=== PATIENT | female | born 1995 | race Caucasian/White ===

== ENCOUNTER 2020-07-29 22:18 | Emergency (ER) | payer OTHER ==
[2020-07-29 22:29] VITALS: O2SAT 98
[2020-07-29 23:32] LABS: Absolute Neutrophil Ct (ANC) 4.17 (1.4-6.9); BASOPHIL % 0.4 % (0.0-0.4); Basophil (Absolute #) 0.03 (0-0.4); Eosinophil % 2.9 % (0.00-5.0); Eosinophil (Absolute #) 0.24 (0-0.5); Hematocrit 35.9 % (35-47); Hemoglobin 11.9 gm/dl (12.0-16.0); Lymphocyte (Absolute #) 3.11 (1.0-4.6); Lymphocytes % 37.5 % (24.0-44.0); Mean Cell Volume 93.7 fl (78-100); Mean Corpuscular Hemoglobin 31.1 pg (26-32); Mean Corpuscular Hgb Concent. 33.1 g/dl (32-36); Mean Platelet Volume 10.2 fl (7.5-11.0); Monocyte (Absolute #) 0.74 (0.0-1.3); Monocytes % 8.9 % (0.0-12.0); Neutrophil % 50.3 % (36.0-66.0); Platelet Count 235 K/mm3 (150-450); Red Blood Count 3.83 M/mm3 (4.1-5.4); White Blood Count 8.3 K/mm3 (4.0-10.5)
[2020-07-29 23:33] LABS: ALBUMIN 4.8 g/dL (3.5-5.0); ALKALINE PHOSPHATASE 56 U/L (38-126); ANION GAP 13.7 MEQ/L (5-15); BLOOD UREA NITROGEN 9 mg/dL (7-17); CHLORIDE 109 mmol/L (98-107); Calcium 9.2 mg/dL (8.4-10.2); Carbon Dioxide 21 mmol/L (22-30); Creatinine 1 0.64 mg/dL (0.52-1.04); EST GLOMERULAR FILTRATION RATE > 60.0 ML/MIN; Glucose 112 mg/dL (74-106); LIPASE 104 U/L (23-300); Potassium 3.9 mmol/L (3.5-5.1); SGOT/AST 32 U/L (14-36); SGPT/ALT 24 U/L (0-35); SODIUM 140 mmol/L (137-145)
[2020-07-30 00:01] VITALS: BP 123/74; PULSE 89
--- NOTE | 2020-07-30 00:11 | ERPHSYRPT ---
- History of Present Illness Time Seen by Provider: 07/29/20 22:30 Source: patient Exam Limitations: no limitations Patient Subjective Stated Complaint: pt c/o vomiting and headache Triage Nursing Assessment: pt c/o vomiting approx 6 times today, every time she eats anything. Pt also c/o headache but denies any significant pain. Pt's lungs clear, heart tones reg, abd soft and distended, tender on palpation to LLQ and hyperactive bs x4 quad. Both breasts are tender and lactating, pt denies any pregnacy, has had tubal in May, 2018. Pt states, "my breasts have been tender and lactating x1.5 wks". Physician History: Patient is a 25-year-old female presents to our ED for complaints of headache nausea and vomiting. Patient advises that she has been experiencing breast tenderness and for 1.5 weeks. Symptoms have been constant. No trauma. Patient has a history of tubal ligation. Tubal ligation was performed on June 04. Patient states she feels as though she is . However patient states that she should not be due to a tubal ligation. Patient states she has been experiencing an intermittent headache since a head injury approximately 2 months ago. However no other neurologic manifestations. No numbness tingling or weakness. No neck pain. Cervical spine cleared clinically. Patient voices no other complaints or concerns at this time. Timing/Duration: week(s) (1.5 weeks) Severity: mild Modifying Factors: Improves With: nothing Associated Symptoms: nausea, vomiting Allergies/Adverse Reactions: No Known Drug Allergies Allergy (Verified 07/29/20 22:45) Home Medications: OLANZapine [Zyprexa] 20 mg PO DAILY 07/29/20 [History] Hx Tetanus, Diphtheria Vaccination/Date Given: No Hx Influenza Vaccination/Date Given: No Hx Pneumococcal Vaccination/Date Given: No Immunizations Up to Date: No Travel Risk - International Travel Have you traveled outside of the country in past 3 weeks: No - Coronavirus Screening Symptoms: Vomiting/Diarrhea, Headaches/Body Aches/Fatigue - Review of Systems Constitutional: No Symptoms, No Fever, No Chills Eyes: No Symptoms Ears, Nose, & Throat: No Symptoms Respiratory: No Cough, No Dyspnea Cardiac: No Chest Pain, No Edema, No Syncope Abdominal/Gastrointestinal: No Abdominal Pain, No Nausea, No Vomiting, No Maylin rrhea Genitourinary Symptoms: No Symptoms, No Dysuria Musculoskeletal: No Symptoms, No Back Pain, No Neck Pain Skin: No Symptoms, No Rash Neurological: No Symptoms, No Dizziness, No Focal Weakness, No Sensory Changes Psychological: No Symptoms Endocrine: No Symptoms Hematologic/Lymphatic: No Symptoms Immunological/Allergic: No Symptoms All Other Systems: Reviewed and Negative - Past Medical History Neurological History: Migraines ENT History: No Pertinent History Cardiac History: No Pertinent History Respiratory History: No Pertinent History Endocrine Medical History: Hyperthyroidism Musculoskeletal History: No Pertinent History GI Medical History: No Pertinent History History: No Pertinent History Psycho-Social History: Depression Female Reproductive Disorders: Other Other Medical History: ovarian cysts - Past Surgical History Past Surgical History: Yes Neuro Surgical History: No Pertinent History Cardiac: No Pertinent History Respiratory: No Pertinent History Gastrointestinal: No Pertinent History Genitourinary: No Pertinent History Musculoskeletal: No Pertinent History Female Surgical History: Tubal Ligation - Social History Smoking Status: Former smoker Exposure to second hand smoke: No Drug Use: none Patient Lives Alone: No - Female History Hx Now: No - Nursing Vital Signs Nursing Vital Signs: Initial Vital Signs Temperature 98.1 F 07/29/20 22:26 Pulse Rate 99 H 07/29/20 22:26 Respiratory Rate 16 07/29/20 22:26 Blood Pressure 137/93 07/29/20 22:26 O2 Sat by Pulse Oximetry 98 07/29/20 22:26 Pain Scale Pain Intensity 0 - Physical Exam General Appearance: no apparent distress, alert, other (Both breasts observed lactating.) Eye Exam: PERRL/EOMI, eyes nml inspection Ears, Nose, Throat Exam: normal ENT inspection, TMs normal, pharynx normal, moist mucous membranes Neck Exam: normal inspection, non-tender, supple, full range of motion Respiratory Exam: normal breath sounds, lungs clear, No respiratory distress Cardiovascular Exam: regular rate/rhythm, normal heart sounds, normal peripheral pulses Gastrointestinal/Abdomen Exam: soft, normal bowel sounds, other (RN documents TTP LLQ, however patient denies TTP during my exam. ), No tenderness, No mass Back Exam: normal inspection, normal range of motion, No CVA tenderness, No vertebral tenderness Extremity Exam: normal inspection, normal range of motion, pelvis stable Neurologic Exam: alert, oriented x 3, cooperative, normal mood/affect, nml cerebellar function, nml station & gait, sensation nml, No motor deficits Skin Exam: normal color, warm, dry, No rash Lymphatic Exam: No adenopathy SpO2 Interpretation: normal SpO2: 98 O2 Delivery: Room Air - Course Nursing assessment & vital signs reviewed: Yes - CT Exams Head CT Interpretation: Tele-radiologist Report (No acute intracranial abnormality observed.) Ordered Tests: Active Orders 24 hr Category Date Time Status IV Insertion STAT Care 07/29/20 22:50 Active HEAD WITHOUT CONTRAST [CT] Stat Exams 07/29/20 23:14 Taken CBC W DIFF Stat Lab 07/29/20 23:00 Completed CMP Stat Lab 07/29/20 23:00 Completed HCG,QUALITATIVE URINE Stat Lab 07/29/20 22:51 Completed LIPASE Stat Lab 07/29/20 23:00 Completed UA W/RFX UR CULTURE Stat Lab 07/30/20 00:21 Ordered Lab/Rad Data: Laboratory Result Diagrams 07/29/20 23:00 07/29/20 23:00 Laboratory Results 07/29/20 07/29/20 07/29/20 Range/Units 23:00 23:00 22:51 WBC 8.3 (4.0-10.5) K/mm3 RBC 3.83 L (4.1-5.4) M/mm3 Hgb 11.9 L (12.0-16.0) gm/dl Hct 35.9 (35-47) % MCV 93.7 (78-100) fl MCH 31.1 (26-32) pg MCHC 33.1 (32-36) g/dl RDW 13.0 (11.5-14.0) % Plt Count 235 (150-450) K/mm3 MPV 10.2 (7.5-11.0) fl Gran % 50.3 (36.0-66.0) % Eos # (Auto) 0.24 (0-0.5) Absolute Lymphs (auto) 3.11 (1.0-4.6) Absolute Monos (auto) 0.74 (0.0-1.3) Lymphocytes % 37.5 (24.0-44.0) % Monocytes % 8.9 (0.0-12.0) % Eosinophils % 2.9 (0.00-5.0) % Basophils % 0.4 (0.0-0.4) % Absolute Granulocytes 4.17 (1.4-6.9) Basophils # 0.03 (0-0.4) Sodium 140 (137-145) mmol/L Potassium 3.9 (3.5-5.1) mmol/L Chloride 109 H (98-107) mmol/L Carbon Dioxide 21 L (22-30) mmol/L Anion Gap 13.7 (5-15) MEQ/L BUN 9 (7-17) mg/dL Creatinine 0.64 (0.52-1.04) mg/dL Estimated GFR > 60.0 ML/MIN Glucose 112 H (74-106) mg/dL Calcium 9.2 (8.4-10.2) mg/dL Total Bilirubin 0.20 (0.2-1.3) mg/dL AST 32 (14-36) U/L ALT 24 (0-35) U/L Alkaline Phosphatase 56 (38-126) U/L Serum Total Protein 8.0 (6.3-8.2) g/dL Albumin 4.8 (3.5-5.0) g/dL Lipase 104 (23-300) U/L Urine HCG, Qual NEGATIVE (Negative) - Progress Progress: improved Progress Note: 07/30/20 00:13 Patient reassessed. She feels well. Patient observed lactating. Urine negative. CT scan was ordered for possible prolactinoma. CT scan negative for acute intracranial pathology. No masses. Patient referred to endocrinology for further work-up. Plan of care discussed with patient. She agrees to follow-up as advised. Patient understands that if for some reason she cannot see endocrine that she is to call our emergency room and obtain a referral for primary care doctor. Counseled pt/family regarding: lab results, diagnosis, need for follow-up, rad results - Departure Departure Disposition: Home Clinical Impression: Vomiting, Prolactin stimulation Condition: Stable Critical Care Time: No Referrals: DOCTOR,NO FAMILY [Primary Care Provider] - ANTONIO REYNA [NON-STAFF PHY W/O PRIVILEGES] - Instructions: Nausea and Vomiting, Adult (DC) Additional Instructions: You will need to see Dr. Reyna for hormonal work-up to evaluate the cause of your . Discharge/Care Plan [email or web address] Archana was seen on 07/30/20 in the Emergency Room. The patient was counseled regarding Diagnosis,Lab results, Imaging studies, need for follow up and when to return to the Emergency Room. Prescriptions given: Discharge Note I have spoken with the patient and/or caregivers. I have explained the patient's condition, diagnosis and treatment plan based on the information available to me at this time. I have answered the patient's and/or caregiver's questions and addressed any concerns. The patient and/or caregivers have as good understanding of the patient's diagnosis, condition and treatment plan as can be expected at this point. The vital signs have been stable. The patient's condition is stable and appropriate for discharge from the emergency department. The patient will pursue further outpatient evaluation with the primary care physician or other designated or consulting physician as outlined in the discharge instructions. The patient and/or caregivers are agreeable to this plan of care and follow-up instructions have been explained in detail. The patient and/or caregivers have received these instruction. The patient/and or caregivers are aware that any significant change in condition or worsening of symptoms should prompt an immediate return to this or the closest emergency department or call 911.
[2020-07-30 00:45] LABS: Appearance SLIGHTLY CLOUDY (CLEAR); Bilirubin NEGATIVE (NEGATIVE); Blood NEGATIVE Ery/ul (0-5); Epithelial Cells RARE /HPF (FEW); Glucose NEGATIVE (NEGATIVE); Ketones NEGATIVE (NEGATIVE); Leukocyte Esterase NEGATIVE (NEGATIVE); Mucus SLIGHT /HPF (NEGATIVE); Nitrite NEGATIVE (NEGATIVE); Protein,Urine Dip NEGATIVE (Negative); RBC 0-2 /HPF (0-2); Specific Gravity 1.006 (1.005-1.025); Urobilinogen NEGATIVE mg/dL (0-1); WBC 0-2 /HPF (0-5)
--- NOTE | 2020-07-30 08:36 | XRAY ---
Indication: Headache 2 months. Nausea and vomiting. Multiple contiguous axial images obtained through the head without contrast. Comparison: None Normal appearing brain parenchyma, ventricles, and bony calvarium. Visualized paranasal sinuses and mastoid air cells are clear. Impression: Normal CT head without contrast exam. Comment: Preliminary interpretation was made by [facility]. No critical discrepancy.
== END 2020-07-30 00:13 | disposition home or self-care (01) ==
LOC: ED 22:18
DX: R11.2 Nausea with vomiting, unspecified (principal); S09.90XD Unspecified injury of head, subsequent encounter; E22.1 Hyperprolactinemia; R19.7 Diarrhea, unspecified; R53.83 Other fatigue; R51.9 Headache, unspecified
CPT/HCPCS: 36000; 36415; 70450; 80053; 81001; 83690; 84703; 85025; 99284